=== PATIENT | male | born 1995 | race Caucasian/White ===

== ENCOUNTER 2018-11-27 10:06 | Emergency (ER) | payer SELFPAY ==
--- NOTE | 2018-11-27 11:06 | ED Physician Documentation ---
PD HPI HEENT - Stated complaint Stated Complaint: TOOTH PX - Chief complaint Chief Complaint: Heent - History obtained from History obtained from: Patient - History of Present Illness Timing - onset: How many days ago (3) Timing - duration: Days (3) Timing - details: Still present Location: Tooth (left lower molar.) - Additional information Additional information: The patient is a 23-year-old male who presents with toothache in a left lower molar. His pain started 3 days ago and has been increasing since that time. He reports associated left earache and mild headache. He denies fever, cough, or difficulty swallowing. He has a history of similar symptoms with other teeth in the past, but never with this tooth. Review of Systems Constitutional: denies: Fever Eyes: denies: Irritation Ears: reports: Ear pain (Mild left earache.) Nose: denies: Congestion Throat: reports: Dental pain / toothache. denies: Sore throat Respiratory: denies: Cough GI: denies: Nausea, Vomiting Skin: denies: Rash Neurologic: reports: Headache (Mild) PD PAST MEDICAL HISTORY - Past Medical History Endocrine/Autoimmune: None - Past Surgical History Past Surgical History: Yes - Present Medications Home Medications: Ambulatory Orders Medication Instructions Recorded Confirmed Hydrocodone/Acetaminophen 1 - 2 each PO Q6H PRN #14 tablet 11/27/18 [Hydrocodon-Acetaminophen 5-325] Penicillin V Potassium 500 mg PO Q6HR #40 tablet 11/27/18 - Allergies Allergies/Adverse Reactions: Allergies Allergy/AdvReac Type Severity Reaction Status Date / Time aspartame Allergy Unknown Verified 11/27/18 10:14 - Social History Does the pt smoke?: No Smoking Status: Never smoker Does the pt drink ETOH?: No Does the pt have substance abuse?: No - Immunizations Immunizations are current?: Yes - POLST Patient has POLST: No PD ED PE NORMAL - Vitals Vital signs reviewed: Yes (normal) - General General: Alert and oriented X 3, Well developed/nourished - HEENT HEENT: Atraumatic, Ears normal, Pharynx benign, Other (Widespread dental decay. Left lower molar, second from the rear, is tender to palpation. There is no gingival erythema or swelling.) - Neck Neck: Supple, no meningeal sign, Other (Mildly enlarged anterior cervical nodes.) - Cardiac Cardiac: RRR - Respiratory Respiratory: No respiratory distress, Clear bilaterally - Derm Derm: No rash - Neuro Neuro: Alert and oriented X 3, Normal speech Results - Vitals Vitals: Oxygen O2 Source Room air PD MEDICAL DECISION MAKING - ED course Complexity details: considered differential, d/w patient ED course: The patient's presentation is most consistent with dental abscess. His examination does not suggest peritonsillar abscess or facial cellulitis. I discussed with him the expected course of illness, antibiotic treatment, the importance of dental follow-up, as well as potentially worrisome signs or symptoms that should prompt reevaluation in the emergency department. He is being discharged with prescriptions for penicillin and for Vicodin, 14 tablets. Departure - Departure Disposition: 01 Home, Self Care Clinical Impression: Dental abscess Condition: Stable Instructions: ED Abscess Dental Prescriptions: Penicillin V Potassium 500 mg PO Q6HR #40 tablet Hydrocodone/Acetaminophen [Hydrocodon-Acetaminophen 5-325] 1 - 2 each PO Q6H PRN #14 tablet PRN Reason: pain Comments: Take penicillin 4 times daily as prescribed. You can use Vicodin as prescribed if needed for pain. Follow-up with a dentist as soon as possible. Call to schedule appointment. Return to the emergency department if you develop increasing facial swelling, difficulty swallowing, or otherwise worsening symptoms. Discharge Date/Time: 11/27/18 11:10
[2018-11-27 11:38] VITALS: BP 114/74
== END 2018-11-27 11:10 | disposition home or self-care (01) ==
LOC: ED 10:06
DX: K04.7 Periapical abscess without sinus (principal)
CPT/HCPCS: 99283

== ENCOUNTER 2020-03-25 10:49 | Emergency (ER) | payer OTHER ==
[2020-03-25] MEDS ORDERED: IBUPROFEN 600 MG TABLET PO STA (11:45)
[2020-03-25] MEDS ORDERED: HYDROcod/ACETAM 5/325 MG TABLET PO STA (11:45)
--- NOTE | 2020-03-25 12:15 | ED Physician Documentation ---
PD HPI LOWER EXT INJURY - Stated complaint Stated Complaint: L LEG PAIN - Chief complaint Chief Complaint: Ext Problem - History obtained from History obtained from: Patient - History of Present Illness PD HPI LOW EXT INJURY LOCATION: Left, Knee Type of injury: Twist. No: Fall, Blunt / blow Timing - onset: Yesterday (has had some pains in left knee at times with certain motions and twisting. Yesterday had increased pain with torsion of knee. No locking nor giving out. It did feel like it locked part extended and then took few minutes to be able to straighten it.) Timing - details: Abrupt onset, Waxing and waning Worsened by: Moving (fully extending after being bent, and with torsion of body on planted foot (turning, etc). Feels sharp pain.). No: Palpating Associated symptoms: No: Weakness, Numbness, Swelling Similar symptoms before: Has not had sx before Recently seen: Not recently seen Review of Systems Constitutional: denies: Fever, Chills Nose: denies: Rhinorrhea / runny nose, Congestion Throat: denies: Sore throat Respiratory: denies: Cough Skin: denies: Rash, Lesions, Abrasion (s), Laceration (s) Neurologic: denies: Focal weakness, Numbness PD PAST MEDICAL HISTORY - Past Medical History Past Medical History: No Endocrine/Autoimmune: None - Past Surgical History Past Surgical History: Yes - Present Medications Home Medications: Ambulatory Orders Medication Instructions Recorded Confirmed Hydrocodone/Acetaminophen [[place] 1 each PO Q6H PRN #15 tablet 03/25/20 5-325 Tablet] Naproxen 500 mg PO BID #20 tablet 03/25/20 - Allergies Allergies/Adverse Reactions: Allergies Allergy/AdvReac Type Severity Reaction Status Date / Time aspartame Allergy Unknown Verified 03/25/20 11:03 - Social History Does the pt smoke?: No Smoking Status: Never smoker Does the pt drink ETOH?: No Does the pt have substance abuse?: No - Immunizations Immunizations are current?: Yes - POLST Patient has POLST: No PD ED PE NORMAL - Vitals Vital signs reviewed: Yes - General General: Alert and oriented X 3, No acute distress (using single crutch to assist walking; he says he has other one at home. ), Well developed/nourished - Derm Derm: Normal color, Warm and dry, No rash - Extremities Extremities: Other (left knee with some tenderness popliteal area. Also tender with fine crepitance over suprapatellar tendon area. No effusion. No noted pain nor laxity with cruciate/collateral testing. Some pain with impated torsion (Apley type). ) - Neuro Neuro: Alert and oriented X 3, No motor deficit, No sensory deficit, Normal speech Results - Vitals Vitals: Oxygen O2 Source Room air - Rads (name of study) left knee Radiology: Prelim report reviewed (no bony abnormality), See rad report PD MEDICAL DECISION MAKING - ED course Complexity details: considered differential (sound meniscal though has some element of patellar tendonitis feel. ), d/w patient Departure - Departure Disposition: 01 Home, Self Care Clinical Impression: Left knee pain Qualifiers: Chronicity: acute Qualified Code(s): M25.562 - Pain in left knee Condition: Stable Record reviewed to determine appropriate education?: Yes Instructions: Kneecap Probs Common, ED Meniscal Injury Knee Poss Follow-Up: [facility] [Provider Group] Prescriptions: Hydrocodone/Acetaminophen [[place] 5-325 Tablet] 1 each PO Q6H PRN #15 tablet PRN Reason: Pain Naproxen 500 mg PO BID #20 tablet Comments: Your knee x-ray appears normal. I do not see osseous/bony cause of the pain. The majority of knee problems however are soft tissue including tendons ligaments and cartilage. Your knee problem does sound likely to be some tendinitis of the anterior patellar tendon with a little crepitance in that area on motion and/or some bruising or small tear of the meniscus in the knee. Initially these would both be treated with some anti-inflammatories and a knee brace when up and around with partial or no weightbearing as needed for the first several days to week and then progressing weightbearing fully as able. Use the knee brace when up and around for 2 to 3 weeks to help reinforce the muscles and reduce motion on the cartilage. Meanwhile call the orthopedic office Friday for an appointment for about a week from now to assess how much improvement you have had with the above interventions and if any further evaluation or treatment is needed. Discharge Date/Time: 03/25/20 12:32
[2020-03-25 12:21] VITALS: BP 115/81
--- NOTE | 2020-03-25 12:55 | XRAY Report ---
Reason: knee pain intermittent for month; worse few days Procedure Date: 03/25/2020 Accession Number: [id number] / [id number] Procedure: XR - Knee 3 View LT CPT Code: Final Report FULL RESULT: EXAM: LEFT KNEE RADIOGRAPHY EXAM DATE: 03/25/2020 12:06 PM. CLINICAL HISTORY: Knee pain intermittent for month; worse few days. COMPARISON: None. TECHNIQUE: 3 views. FINDINGS: Bones: Normal. No fractures or bone lesions. Joints: Normal. No effusion. No subluxations. Soft Tissues: Normal. No soft tissue swelling. IMPRESSION: 1. No osseous abnormalities. RADIA
== END 2020-03-25 12:32 | disposition home or self-care (01) ==
LOC: ED 10:49
DX: M25.562 Pain in left knee (principal)
CPT/HCPCS: 73562; 99283; A9270

== ENCOUNTER 2022-01-08 09:50 | Emergency (ER) | payer SELFPAY ==
[2022-01-08 09:59] VITALS: BP 127/72
--- NOTE | 2022-01-08 11:04 | ED Physician Documentation ---
PD HPI SKIN - Stated complaint Stated Complaint: LT EAR PX, SWELLING - Chief complaint Chief Complaint: Heent - History obtained from History obtained from: Patient - History of Present Illness Timing - onset: How many days ago (3) Timing - duration: Days (3) Timing - details: Gradual onset, Still present Location: Neck Quality / character: Painful, Raised, Swelling. No: Draining Associated symptoms: Facial swelling, Other (left ear pain). No: Fever, Myalgias, Joint pain, Headache, Dyspnea, Abd pain, N/V/D, Urinary sx Contributing factors: Other (has acne) Similar symptoms before: Diagnosis (abscess) Recently seen: Not recently seen - Additional information Additional information: Appears well 26-year-old male with a history of acne presents to the emerge department today with a swelling underneath his left ear that is tender and is causing pain into his ear. He does not have any muffled hearing he denies any cough associated with this he does have a history of cerumen impaction. He has had similar incident previously with masses on his face. He has not had to have incision and drainage. Review of Systems Constitutional: denies: Fever Eyes: denies: Decreased vision Ears: reports: Ear pain. denies: Loss of hearing, Drainage/discharge, Tinnitus/ringing Nose: denies: Rhinorrhea / runny nose, Congestion Throat: denies: Sore throat Cardiac: denies: Chest pain / pressure Respiratory: denies: Dyspnea, Cough GI: denies: Abdominal Pain, Nausea, Vomiting : denies: Dysuria, Frequency Skin: reports: Other (Lumps in the skin) Musculoskeletal: reports: Neck pain PD PAST MEDICAL HISTORY - Past Medical History Endocrine/Autoimmune: None - Past Surgical History Past Surgical History: Yes - Present Medications Home Medications: Ambulatory Orders Medication Instructions Recorded Confirmed Hydrocodone/Acetaminophen [[place] 1 each PO Q6H PRN #15 tablet 03/25/20 5-325 Tablet] Naproxen 500 mg PO BID #20 tablet 03/25/20 Sulfamethox/Trimeth 800/160 1 each PO BID #14 tablet 01/08/22 [Bactrim Ds] - Allergies Allergies/Adverse Reactions: Allergies Allergy/AdvReac Type Severity Reaction Status Date / Time aspartame Allergy Unknown Verified 01/08/22 09:59 - Social History Does the pt smoke?: No Smoking Status: Never smoker Does the pt drink ETOH?: No Does the pt have substance abuse?: No - Immunizations Immunizations are current?: Yes - POLST Patient has POLST: No PD ED PE NORMAL - Vitals Vital signs reviewed: Yes (Normal) - General General: Alert and oriented X 3, No acute distress, Well developed/nourished - HEENT HEENT: Atraumatic, PERRL, EOMI, Pharynx benign, Other (Both ear canals are without erythema and there is cerumen impaction bilaterally. This obscures the examination of the TM. ) - Neck Neck: Supple, no meningeal sign, No bony TTP, Other (There is a 1 cm round erythematous nodule in the subcutaneous tissue below the left ear in the soft tissues of the neck. This looks like a developing abscess. The patient does have acne vulgaris. He has similar mass on the right side lower in the neck that has been present and stable.) - Respiratory Respiratory: No respiratory distress - Derm Derm: Normal color, Warm and dry - Extremities Extremities: No deformity, No edema - Neuro Neuro: Alert and oriented X 3, director of group counseling program 2-12 intact, No motor deficit, No sensory deficit, Normal speech Eye Opening: Spontaneous Motor: Obeys Commands Verbal: Oriented GCS Score: 15 - Psych Psych: Normal mood, Normal affect Results - Vitals Vitals: Vital Signs - 24 hr 01/08/22 09:56 Temperature 36.4 C L Heart Rate 68 Respiratory 16 Rate Blood Pressure 127/72 O2 Saturation 99 Oxygen O2 Source Room air PD MEDICAL DECISION MAKING - ED course Complexity details: considered differential, d/w patient ED course: 26-year-old male with a history of acne vulgaris has a tender erythematous mass in the left neck. This does not require incision and drainage. We will place the patient on a course of sulfamethoxazole trimethoprim and warm compress. Departure - Departure Disposition: 01 Home, Self Care Clinical Impression: Abscess Condition: Stable Instructions: ED Staph Infec Abx Tx Only Follow-Up: [facility] [place] [Provider Group] Prescriptions: Sulfamethox/Trimeth 800/160 [Bactrim Ds] 1 each PO BID #14 tablet Comments: Tera, today it looks like you have an abscess or bacterial infection under the skin in the left side of your neck. We have placed you onto an antibiotic sulfamethoxazole trimethoprim and this has been E scribed to E[facility]es in [place]. Take this medication twice per day and use a warm compress 10 minutes 2-3 times per day. Expect improvement day by day. If you develop an area that is worsening with swelling and tenderness and there is obviously fluid under to the skin follow-up here for incision and drainage.
== END 2022-01-08 11:11 | disposition home or self-care (01) ==
LOC: ED 09:50
DX: L02.11 Cutaneous abscess of neck (principal)
CPT/HCPCS: 99282

== ENCOUNTER 2022-04-13 17:25 | Emergency (ER) | payer OTHER ==
[2022-04-13 17:42] VITALS: BP 121/69
[2022-04-13] MEDS ORDERED: TETANUS/DIPHTHERIA/PERTUSSIS 0.5 ML SYRINGE IM ONE (17:50)
[2022-04-13] MEDS ORDERED: BACITRACIN ZINC OINT 1 PACKET TOP STA (17:50)
--- NOTE | 2022-04-13 18:28 | ED Physician Documentation ---
History of Present Illness - Stated complaint Stated Complaint: L THUMB LACERATION - Chief complaint Chief Complaint: Laceration - Additonal information Additional information: 26-year male presents emergency department for evaluation of a laceration sustained while at work on his left thumb. He was sharpening a knife. 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 Uncertain of last tetanus. He is left-hand dominant Review of Systems Constitutional: denies: Fever, Chills Nose: reports: Reviewed and negative Throat: reports: Reviewed and negative Cardiac: reports: Reviewed and negative Respiratory: reports: Reviewed and negative GI: reports: Reviewed and negative : reports: Reviewed and negative Skin: reports: Laceration (s) Musculoskeletal: reports: Reviewed and negative PD PAST MEDICAL HISTORY - Past Medical History Endocrine/Autoimmune: None - Past Surgical History Past Surgical History: Yes - Present Medications Home Medications: Ambulatory Orders Medication Instructions Recorded Confirmed Hydrocodone/Acetaminophen [[place] 1 each PO Q6H PRN #15 tablet 03/25/20 5-325 Tablet] Naproxen 500 mg PO BID #20 tablet 03/25/20 Sulfamethox/Trimeth 800/160 1 each PO BID #14 tablet 01/08/22 [Bactrim Ds] - Allergies Allergies/Adverse Reactions: Allergies Allergy/AdvReac Type Severity Reaction Status Date / Time aspartame Allergy Unknown Verified 01/08/22 09:59 - Social History Does the pt smoke?: No Smoking Status: Never smoker Does the pt drink ETOH?: No Does the pt have substance abuse?: No - Immunizations Immunizations are current?: Yes - POLST Patient has POLST: No PD ED PE EXPANDED - General General: Alert, No acute distress, Well developed/nourished - Extremities Extremities: Left finger(s) (3 cm laceration Distal tip left thumb that begins just distal to DIP joint, extends through the nail on the radial side and ends at the tip. Preserved flexion and extension against resistance. Bleeding controlled with pressure.) Results - Vitals Vitals: Vital Signs - 24 hr 04/13/22 17:36 Temperature 36.9 C Heart Rate 69 Respiratory 16 Rate Blood Pressure 121/69 O2 Saturation 99 Oxygen O2 Source Room air Procedures - Laceration (location) left thumb Length in cm: 3 Wound type: Linear, Into subcut fat Neurovascular status: Sensory intact, Motor intact, Vascular intact Tendon involvement: Tendon intact Anesthesia: Lidocaine 1% Wound preparation: Hibiclens, Irrigated copiously NS Skin layer closure: Interrupted, Sutures - enter # (7) Other: Patient tolerated well, No complications, Neurovascular intact, Tetanus booster given PD MEDICAL DECISION MAKING - ED course Complexity details: considered differential, d/w patient ED course: 26-year-old male presents emergency department for evaluation of a left distal thumb laceration sustained while at work. No evidence of neurovascular or tendon injury. Closed with 7 interrupted sutures. Tetanus was updated. Routine wound care and emergent return precautions discussed. [employer] [id number] completed Departure - Departure Disposition: Home, Self Care Clinical Impression: Laceration of left thumb Qualifiers: Encounter type: initial encounter Damage to nail status: with damage Foreign body presence: without foreign body Qualified Code(s): S61.112A - Laceration without foreign body of left thumb with damage to nail, initial encounter Condition: Stable Record reviewed to determine appropriate education?: Yes Instructions: ED Laceration Hand Comments: Your suture(s) should be removed in 10-14 days. In 24 hours you may remove the dressing wash gently with warm soap and water, apply any antibiotic ointment and a simple bandage. Your tetanus is up-to-date. Please attempt to keep your wound clean and dry. Do not submerge it in dirty dishwater or bath water. Keep the thumb elevated for the next 24 to 48 hours to help reduce pain. I do recommend that you take Tylenol 500 mg 2-3 times a day or alternate with ibuprofen 600 mg 2-3 times a day for discomfort. Return to the emergency department if you have any concerns of infection such as redness, fevers milky drainage increased pain.
== END 2022-04-13 18:37 | disposition home or self-care (01) ==
LOC: ED 17:25
DX: S61.012A Laceration without foreign body of left thumb without damage to nail, initial encounter (principal); W26.0XXA Contact with knife, initial encounter; Y99.0 Civilian activity done for income or pay; Z23 Encounter for immunization; Z71.85 Encounter for immunization safety counseling
CPT/HCPCS: 1040M; 12002; 90471; 90715; 99283; A9270

== ENCOUNTER 2023-12-07 07:23 | Emergency (ER) | payer SELFPAY ==
[2023-12-07 07:57] LABS: BASOPHILS % (AUTO) 1.2 %; EOSINOPHILS % (AUTO) 0.5 %; HCT - HEMATOCRIT 44.8 % (42.0-52.0); HGB - HEMOGLOBIN 14.9 g/dL (14.0-18.0); LYMPHOCYTES % (AUTO) 67.8 %; MEAN CORPUSCULAR HGB CONC 33.3 g/dL (32.0-36.0); MEAN CORPUSCULAR VOLUME 84.1 fL (80.0-94.0); MEAN PLATELET VOLUME 10.9 fL (7.4-11.4); NEUTROPHILS % (AUTO) 20.4 %; PLT - PLATELET COUNT 109 10^3/uL (130-450); RED BLOOD COUNT 5.33 10^6/uL (4.70-6.10); RED CELL DISTRIBUTION WIDTH 13.5 % (12.0-15.0)
[2023-12-07 07:59] LABS: ABNORMAL LYMPHS % (MANUAL) 0 %; SLIDE REVIEW? Indicated
--- NOTE | 2023-12-07 08:00 | ED Physician Documentation ---
PD HPI NVD - Stated complaint Stated Complaint: VOMITING - Chief complaint Chief Complaint: Abd Pain - History obtained from History obtained from: Patient - History of Present Illness Timing - onset: How many days ago (3) Timing - duration: Days (3) Timing - details: Abrupt onset, Still present Associated symptoms: Fever, Abdominal pain (cramping intermittent). No: Chest pain Contributing factors: No: Sick contact, Bad food, Alcohol use Similar symptoms before: Has not had sx before Recently seen: Not recently seen Review of Systems Constitutional: reports: Chills, Myalgias. denies: Fever Nose: denies: Rhinorrhea / runny nose, Congestion Throat: denies: Sore throat Respiratory: denies: Cough GI: reports: Abdominal Pain (intermittent cramping diffusely), Nausea, Vomiting. denies: Abdominal Swelling, Constipation Neurologic: reports: Generalized weakness PD PAST MEDICAL HISTORY - Past Medical History Past Medical History: Yes Cardiovascular: None Respiratory: None Neuro: None Endocrine/Autoimmune: None GI: None : None HEENT: None Psych: None Musculoskeletal: None Derm: None - Past Surgical History Past Surgical History: Yes - Present Medications Home Medications: Ambulatory Orders Medication Instructions Recorded Confirmed Famotidine [Pepcid] 20 mg PO DAILY #20 tablet 12/07/23 Ondansetron Odt [Zofran] 4 mg TL Q6H PRN #10 tablet 12/07/23 - Allergies Allergies/Adverse Reactions: Allergies Allergy/AdvReac Type Severity Reaction Status Date / Time aspartame Allergy Unknown Verified 12/07/23 07:31 - Living Situation Living Situation: reports: With spouse/s.o. Living Arrangement: reports: At home - Social History Does the pt smoke?: No Smoking Status: Never smoker Does the pt drink ETOH?: No Does the pt have substance abuse?: Yes Substance Use and Type: Marijuana - Immunizations Immunizations are current?: Yes - POLST Patient has POLST: No PD ED PE NORMAL - Vitals Vital signs reviewed: Yes - General General: Alert and oriented X 3, No acute distress (he does not seem in pain. Appears nauseated, holding emesis bag. ), Well developed/nourished - HEENT HEENT: Pharynx benign - Neck Neck: Supple, no meningeal sign, No adenopathy - Cardiac Cardiac: RRR, No murmur - Respiratory Respiratory: No respiratory distress, Clear bilaterally - Abdomen Abdomen: Normal bowel sounds, Soft, Non distended, Other (mild tender epigastric and mid/central abd without guarding, percussion nor rebound tenderness. ) Results - Vitals Vitals: Vital Signs - 24 hr 12/07/23 12/07/23 12/07/23 07:32 07:48 09:35 Temperature 36.2 C L Heart Rate 83 73 65 Respiratory 18 18 14 Rate Blood Pressure 129/68 124/77 118/65 O2 Saturation 98 97 100 12/07/23 11:31 Temperature 36.3 C L Heart Rate 60 Respiratory 16 Rate Blood Pressure 119/70 O2 Saturation 99 Oxygen O2 Source Room air - Labs Labs: Laboratory Tests 12/07/23 12/07/23 12/07/23 07:45 07:45 09:30 WBC 15.0 H RBC 5.33 Hgb 14.9 Hct 44.8 MCV 84.1 MCH 28.0 MCHC 33.3 RDW 13.5 Plt Count 109 L MPV 10.9 Neut # (Auto) Not Reportable Lymph # (Auto) Not Reportable [place] # (Auto) Not Reportable Eos # (Auto) Not Reportable Baso # (Auto) Not Reportable Absolute Nucleated RBC Not Reportable Total Counted 100 Band Neuts % (Manual) 2 Abnorm Lymph % (Manual) 0 Nucleated RBC % Not Reportable Neutrophils # (Manual) 2.3 Lymphocytes # (Manual) 12.2 H Monocytes # (Manual) 0.6 Eosinophils # (Manual) 0.0 Basophils # (Manual) 0.0 Differential Comment MANUAL DIFFERENTIAL Manual Slide Review Indicated WBC Morphology NORMAL APPEARANCE Platelet Estimate DECREASED (<130,000) Platelet Morphology NORMAL APPEARANCE RBC Morph Micro Appear NORMAL APPEARANCE Sodium 134 L Potassium 3.9 Chloride 98 L Carbon Dioxide 27 Anion Gap 9.0 BUN 13 Creatinine 0.9 Estimated GFR (MDRD) 100 Glucose 91 Calcium 9.5 Total Bilirubin 0.9 AST 366 H ALT 317 H Alkaline Phosphatase 163 H Total Protein 8.8 Albumin 4.1 Globulin 4.7 H Albumin/Globulin Ratio 0.9 L Lipase 18 Urine Color YELLOW Urine Clarity CLEAR Urine pH 6.5 Ur Specific [place] 1.015 Urine Protein NEGATIVE Urine Glucose (UA) NEGATIVE Urine Ketones 15 H Urine Occult Blood NEGATIVE Urine Nitrite NEGATIVE Urine Bilirubin SMALL H Urine Urobilinogen 4 H Ur Leukocyte Esterase NEGATIVE Ur Microscopic Review NOT INDICATED Urine Culture Comments NOT INDICATED PD Medical Decision Making - ED course Complexity details: reviewed results, considered differential (has had general aches, anusea and repeted vomiting with some loose stool but not overt diarrhea. Has some tenderness RUQ but no guarding nor percussion tenderness. Elevated LFTs I believe are from illness and vomiting and not clinically c/w GB/CBD proce ss. ), d/w patient ED course: He is feeling improved with IV lfuids and antiemetics, Toradol. Recehck abd exam is not tender at this point. Has elevated LFTs of ALT, AST, Alk Phos but bilirubin and lipase are normal. WBC elevated at 15K but nonspecific per se, but lipase is good. Not anemic. Departure - Departure Disposition: 01 Home, Self Care Clinical Impression: Nausea and vomiting, Volume depletion, Elevated liver enzymes, Gastroenteritis Condition: Stable Record reviewed to determine appropriate education?: Yes Instructions: ED Nausea Vomiting Follow-Up: [facility] In [place] [Provider Group] Prescriptions: Famotidine [Pepcid] 20 mg PO DAILY #20 tablet Ondansetron Odt [Zofran] 4 mg TL Q6H PRN #10 tablet PRN Reason: Nausea / Vomiting Comments: This does sound most likely to be a viral etiology ("stomach flu"). Your basic blood count shows normal blood count so not anemic. Your white count portion is elevated suggesting an more likely infectious cause. Your basic kidney function and electrolytes and blood sugar are okay. Your liver enzymes are a bit elevated and more likely to be from the illness and vomiting and just a temporary elevation. I would anticipate improvement over the next couple of days with having been rehydrated and also adding on some nausea medicine and acid reducing medicine for the stomach which is undoubtedly gotten irritated with the illness. Small frequent fluids today and bland food initially with progressing to normal diet over the next day or so as tolerated. Off work today and tomorrow most likely but see how you are feeling. Ondansetron if needed for nausea and famotidine daily for the next week or 2. I sent these to your preferred pharmacy. Return to the ER if worse again or follow-up at walk-in or such if not fully improved over the next 2 to 3 days or recurring symptoms in the near future. Unless you are completely improved back to normal over the next few days, it would be good to recheck and have your chemistry panel blood test retested to ensure your liver enzymes etc. are back to normal. If you have fully resolved then most likely they would be. Forms: PCP List, Activity restrictions Discharge Date/Time: 12/07/23 11:37
[2023-12-07 08:04] LABS: ALBUMIN 4.1 g/dL (3.2-5.5); ALBUMIN/GLOBULIN RATIO 0.9 (1.0-2.2); BILIRUBIN,TOTAL 0.9 mg/dL (0.2-1.0); CALCIUM 9.5 mg/dL (8.5-10.3); CREATININE 0.9 mg/dL (0.6-1.3); POTASSIUM 3.9 mmol/L (3.5-4.5); TOTAL PROTEIN 8.8 g/dL (6.4-8.9)
[2023-12-07 08:21] LABS: BAND NEUTROPHILS % (MANUAL) 2 %; LYMPHOCYTES # (MANUAL) 12.2 10^3/uL (1.5-3.5); LYMPHOCYTES % (MANUAL) 81 %; MONOCYTES # (MANUAL) 0.6 10^3/uL (0.0-1.0); NEUTROPHILS # (MANUAL) 2.3 10^3/uL (1.5-6.6)
[2023-12-07 08:25] LABS: DIFFERENTIAL COMMENT MANUAL DIFFERENTIAL; PLATELET ESTIMATE, MANUAL DECREASED (<130,000) (NORMAL); PLATELET MORPHOLOGY NORMAL APPEARANCE (NORMAL); RBC MORPHOLOGY (MULTIPLE) NORMAL APPEARANCE (NORMAL); WBC MORPHOLOGY (MULTIPLE) NORMAL APPEARANCE (NORMAL)
[2023-12-07] MEDS: ONDANSETRON 4 MG/2 ML VIAL IVP STA (08:28)
[2023-12-07] MEDS: SODIUM CHLORIDE 0.9% 2,000 ML IV STA (08:28)
[2023-12-07] MEDS: KETOROLAC 15 MG/ML VIAL IVP STA (08:28)
[2023-12-07 09:40] LABS: BILIRUBIN,URINE SMALL (NEGATIVE); GLUCOSE, URINE (UA) NEGATIVE (NEGATIVE); KETONES,URINE (UA) 15 mg/dL (NEGATIVE); LEUKOCYTE ESTERASE, URINE NEGATIVE (NEGATIVE); NITRITE,URINE NEGATIVE (NEGATIVE); OCCULT BLOOD,URINE NEGATIVE (NEGATIVE); PH,URINE 6.5 PH (5.0-7.5); PROTEIN,URINE NEGATIVE (NEGATIVE); UROBILINOGEN,URINE 4 E.U./dL (NORMAL)
[2023-12-07 09:41] LABS: CLARITY,URINE CLEAR (CLEAR)
[2023-12-07] MEDS: DROPERIDOL 5 MG/2 ML VIAL IVP STA (09:41)
[2023-12-07 11:43] VITALS: BP 119/70; O2SAT 99
== END 2023-12-07 11:37 | disposition home or self-care (01) ==
LOC: ED 07:23
DX: K52.9 Noninfective gastroenteritis and colitis, unspecified (principal); R79.89 Other specified abnormal findings of blood chemistry; R11.2 Nausea with vomiting, unspecified
CPT/HCPCS: 36415; 80053; 81001; 81003; 83690; 85025; 87086; 96361; 96374; 96375; 99284